=== PATIENT | male | born 1980 | race Caucasian/White ===

== ENCOUNTER 2020-10-17 13:29 | Emergency (ER) | payer MEDICAID ==
[~2020-10-17] VITALS: Ht 172.7 cm; Wt 100.0 kg
[~2020-10-17 13:29] MED LIST: FLOMAX0.4 MG PO; INDERAL10 MG PO; IPRAT-ALBUT 0.5-3 ML UPD; KLOR-CON M2020 MEQ PO; LASIX40 MG PO; LISINOPRIL10 MG PO; OXYCONTIN10 MG PO; PEPCID40 MG PO; PROZAC20 MG PO; VENTOLIN HFA18 GM INH; XANAX2 MG PO
[2020-10-17 13:31] VITALS: BP 130/91; Ht 172.7 cm; Wt 100.0 kg
[2020-10-17 13:56] LABS: BASOPHILS 0.9 % (0-2); EOSINOPHILS 3.8 % (0-7); HEMATOCRIT 41.9 % (42.0-54.0); HEMOGLOBIN 14.9 g/dL (13.5-17.5); LYMPHOCYTES 19.1 % (15-50); MCH 32.4 pg (26.0-34.0); MCHC 35.6 g/dL (31.0-37.0); MEAN PLATELET VOLUME 8.3 fL (7.4-10.4); MONOCYTES 8.9 % (2-11); NEUTROPHILS 67.3 % (40-80); RDW 13.7 % (11.5-14.5); WBC 8.5 10x3/uL (4.8-10.8)
[2020-10-17 14:02] LABS: PLATELET COUNT 228 10x3/uL (130-400)
[2020-10-17 14:05] LABS: CALC OSMOLALITY 280 mosm/kg (275-300); CALCIUM 8.8 mg/dL (8.5-10.1); CARBON DIOXIDE 25.2 mmol/L (21.0-32.0); CHLORIDE - SERUM 106 mmol/L (98-107); GLUCOSE 80 mg/dL (74-106); POTASSIUM - SERUM 4.3 mmol/L (3.5-5.1); SODIUM 140 mmol/L (136-145); UREA NITROGEN 21 mg/dL (7-18); eGFR NON AFRICAN AMERICAN 87 mL/min (90-120)
[2020-10-17 14:09] LABS: ALBUMIN 3.6 g/dL (3.4-5.0); ALKALINE PHOSPHATASE 61 U/L (30-120); ALT (SGPT) 26 U/L (10-68); BILIRUBIN - TOTAL 1.84 mg/dL (0.2-1.3); MAGNESIUM - SERUM 1.9 mg/dL (1.8-2.4); PROTEIN - SERUM 7.2 g/dL (6.4-8.2)
[2020-10-18] MEDS ORDERED: TORADOL10 MG PO (00:12)
== END 2020-10-17 17:55 | disposition home or self-care (01) ==
LOC: D.ER 13:29
PROVIDERS: Family Medicine
DX: F15.10 Other stimulant abuse, uncomplicated (principal); I10 Essential (primary) hypertension; J44.9 Chronic obstructive pulmonary disease, unspecified

== ENCOUNTER 2020-10-17 22:59 | Emergency (ER) | payer MEDICAID ==
[~2020-10-17] VITALS: Ht 172.7 cm; Wt 90.9 kg
[2020-10-17 23:29] VITALS: BP 127/64; Ht 172.7 cm; Wt 90.9 kg
[2020-10-18] MEDS ORDERED: TORADOL10 MG PO (00:12)
== END 2020-10-18 00:36 | disposition home or self-care (01) ==
LOC: D.ER 22:59
DX: L72.0 Epidermal cyst (principal); S80.12XA Contusion of left lower leg, initial encounter; X58.XXXA Exposure to other specified factors, initial encounter; I10 Essential (primary) hypertension; J44.9 Chronic obstructive pulmonary disease, unspecified